=== PATIENT | female | born 1960 | race Caucasian/White ===

== ENCOUNTER 2016-09-08 08:33 | Emergency (ER) | payer MEDICAID ==
[~2016-09-08] VITALS: Ht 162.6 cm; Wt 90.7 kg
--- NOTE | 2016-09-08 08:33 | NUR ---
BIB RA C/O FEELING ANXIOUS S/P INGESTION OF MARIJUANA. NAD NOTED. PT AAO X4, AMBULATORY WITH STEADY GAIT. RR EVEN AND UNLABORED. APPEARS ANXIOUS ON ARRIVAL. AWAITING MD FOR EVAL.
--- NOTE | 2016-09-08 08:45 | NUR ---
EKG AT BEDSIDE
[2016-09-08 09:07] LABS: BASOPHILS % (AUTO) 0.2 % (0.0-2.0); EOSINOPHILS # (AUTO) 0.1 /CMM (0.0-0.7); EOSINOPHILS % (AUTO) 1.3 % (0.0-6.0); HEMATOCRIT 31 % (33-45); HEMOGLOBIN 10.2 g/dL (11.5-14.8); LYMPHOCYTES # (AUTO) 1.2 /CMM (0.8-4.8); LYMPHOCYTES % (AUTO) 10.6 % (20.0-44.0); MEAN CORPUSCULAR HEMOGLOBIN 27 PG (26.0-33.0); MEAN CORPUSCULAR HGB CONC 33 g/dl (31.0-36.0); MEAN CORPUSCULAR VOLUME 80 fL (82-100); MONOCYTES # (AUTO) 0.4 /CMM (0.1-1.30); MONOCYTES % (AUTO) 3.8 % (2.0-12.0); NEUTROPHILS # (AUTO) 9.6 /CMM (1.8-8.9); NEUTROPHILS % (AUTO) 84.1 % (43.0-81.0); PLATELET COUNT (AUTO) 257 /CMM (150-450); RDW COEFFICIENT OF VARIATION 14.8 (11.5-15.0); RED BLOOD CELL COUNT(AUTO) 3.85 MIL/uL (4.0-5.2); WHITE BLOOD COUNT (AUTO) 11.4 K/uL (4.3-11.0)
[2016-09-08 09:16] LABS: CALCIUM, SERUM 8.5 mg/dL (8.5-10.1); CARBON DIOXIDE 26 mmol/L (21-32); CHLORIDE 103 mmol/L (98-107); CREATININE 0.8 mg/dL (0.6-1.3); GFR 74 mL/min (>60); GLUCOSE 200 mg/dL (74-106); POTASSIUM 4.7 mmol/L (3.5-5.1); SODIUM SERUM 137 mmol/L (136-145); UREA NITROGEN, BLOOD 17 mg/dL (7-18)
[2016-09-08 09:23] LABS: ALANINE AMINOTRANSFERASE 18 U/L (12-78); ALBUMIN 3.3 g/dL (3.4-5.0); ALKALINE PHOSPHATASE 132 U/L (46-116); ASPARTATE AMINOTRANSFERASE 11 U/L (15-37); BILIRUBIN,DIRECT 0.1 mg/dL (0.0-0.2); BILIRUBIN,TOTAL 0.3 mg/dL (0.2-1.0); TOTAL PROTEIN, SERUM 7.1 g/dL (6.4-8.2)
[2016-09-08 09:24] LABS: TROPONIN I < 0.017 ng/mL (0.00-0.056)
[2016-09-08 09:33] LABS: ACETAMINOPHEN < 10 ug/ml (10-30)
[2016-09-08 09:34] LABS: ALCOHOL, BLOOD < 3 mg/dL (0-0)
[2016-09-08 11:08] VITALS: BP 151/71
[2016-09-08] MEDS ORDERED: TRAM50TA2 PO (15:17)
[2016-09-08] MEDS ORDERED: IBUP-1482 PO (15:26)
[2016-09-08] MEDS ORDERED: Gabapentin PO (15:26)
[2016-09-08] MEDS ORDERED: METF500T4 PO (15:26)
[2016-09-08] MEDS ORDERED: LISI-603 PO (15:26)
== END 2016-09-08 11:09 | disposition home or self-care (01) ==
LOC: ER 08:36
DX: T40.7X1A Poisoning by cannabis (derivatives), accidental (unintentional), initial encounter (principal); Y92.89 Other specified places as the place of occurrence of the external cause; D64.9 Anemia, unspecified
CPT/HCPCS: 36415; 80048; 80076; 80329; 84484; 85025; 93005; 99285; A4606; G0480 ×2; Z7610; G6039-TC

== ENCOUNTER 2016-09-08 13:37 | Inpatient (IN) | payer MEDICAID ==
[~2016-09-08] VITALS: Ht 152.4 cm; Wt 109.3 kg
--- NOTE | 2016-09-08 13:43 | NUR ---
PT TO ER BED 18. SEEN AND D/C HERE EARLIER. C/O L HIP PAIN. DENIES RECENT TRAUMA. SEEN FOR ANXIETY EARLIER S/P SMOKING MARIJUANA. STATES UNABLE TO WALK DUE TO PAIN. AWAITING MD MOHAN.
--- NOTE | 2016-09-08 13:47 | NUR ---
WILMER LOMAS AT BEDSIDE FOR EVAL.
--- NOTE | 2016-09-08 14:07 | NUR ---
DR RICO AT BEDSIDE FOR EVAL.
--- NOTE | 2016-09-08 14:51 | NUR ---
PAGED LARISSA JONES FOR ADMISSION.
--- NOTE | 2016-09-08 15:00 | NUR ---
SW was informed by an RN stating that there is a homeless pt[facility] requesting some [facility]. [facility]. Pt. states she was just released from ED however, pt. had an unsteady gait and was unable to ambulate. Pt. was escorted back to ED. Pt. informed SW she is in chronic pain and is unable to ambulate. Pt. states she has been homeless for the past 15 days. Pt. had a small suitcase and bag of belongings with her. Pt. was earlier in the ED due to smoking an unknown cigar in a park and feeling high. Pt. has a social media marketing manager Meena at [facility] . RUT contacted Meena per pt's request. Initially pt. was going to be discharged to her SW at [facility], however due to pt's difficulty ambulating due to her chronic pain to her left lower extremity pt. was admitted to [facility] for an MRI of the lumbar spine. RUT to follow up with pt. tomorrow regarding discharge planning.
[2016-09-08] MEDS ORDERED: TRAM50TA2 PO (15:17)
[2016-09-08] MEDS ORDERED: LISI-603 PO (15:26)
[2016-09-08] MEDS ORDERED: METF500T4 PO (15:26)
[2016-09-08] MEDS ORDERED: Gabapentin PO (15:26)
[2016-09-08] MEDS ORDERED: IBUP-1482 PO (15:26)
--- NOTE | 2016-09-08 15:33 | NUR ---
REPORT GIVEN TO TIFFANY. PT TRANSFERE DTO FLOOR. STABLE CONDITION.
[2016-09-08 15:40] VITALS: BP 138/78
--- NOTE | 2016-09-08 15:40 | NUR ---
RN OPENING NOTES RECEIVED PT FROM ER IN STABLE CONDITION. PT. TRANSFERRED TO BE SAFELY. A/O X4. NO SOB AT THIS TIME. PT. ORIENTED IN USE. BED IN LOW LOCKED POTIONS Addendum: 09/08/16 at 1641 by PARESH MORENO RN RN OPENING NOTES RECEIVED PT FROM ER IN STABLE CONDITION. PT. TRANSFERRED TO BE SAFELY. A/O X4. NO IV AT THIS TIME, WILL ATTEMPT TO PUT ONE IN. PT. ORIENTED TO ROOM. BED IN LOW LOCKED POSITION, SIDE RAILS U P X2, CALL LIGHT WITHIN REACH. NOTIFIED OF PT ARRIVAL. WILL CONTINUE TO MONITOR AND CARRY OUT ORDERS.
[2016-09-08] MEDS ORDERED: MAG HYDROX/AL HYDROX/SIMETH 30 ML UDC PO PRN (17:00)
[2016-09-08] MEDS ORDERED: MORPHINE SULFATE INJ 2 MG/ML DISP.SYRIN IV PRN (17:00)
[2016-09-08] MEDS ORDERED: ONDANSETRON HCL/PF 4 MG/2 ML VIAL IVP PRN (17:00)
[2016-09-08] MEDS ORDERED: Z GUARD REMEDY 2 OZ OINT TP PRN (17:00)
[2016-09-08] MEDS ORDERED: ACETAMINOPHEN 325 MG TABLET PO PRN (17:00)
[2016-09-08] MEDS ORDERED: IBUPROFEN 800 MG TABLET PO PRN (17:00)
[2016-09-08] MEDS ORDERED: DEXTROSE 50%-WATER 50 ML DISP.SYRIN IV PRN (17:30)
[2016-09-08] MEDS ORDERED: IBUPROFEN 400 MG TABLET PO PRN ×2 (17:30)
[2016-09-08] MEDS: METFORMIN 500 MG TABLET PO SCH (17:31)
[2016-09-08] MEDS: BLOOD SUGAR DIAGNOSTIC 1 EACH STRIP IN SCH ×2 (17:33→21:45)
[2016-09-08] MEDS: INSULIN REGULAR, HUMAN 100 UNIT/ML 3 ML VIAL SQ PRN (17:40)
--- NOTE | 2016-09-08 18:30 | NUR ---
MS RN CLOSING NOTES PT. IN STABLE CONDITION SLEEPING IN BED. NO SIGNS OF DISTRESS OR PAIN NOTED AT THIS TIME. IV ON LEFT HAND 22G SL. INTACT AND PATENT. NO REDNESS OR INFILTRATION. BED IN LOW LOCKED POSITION, SIDE RAILS UP X2, CALL LIGHT WITHIN REACH. WILL ENDORSE TO NIGHT NURSE FOR AL[place]
--- NOTE | 2016-09-08 19:50 | NUR ---
RN MS - INITIAL NOTES PATIENT CURRENTLY ASLEEP AT THIS TIME. NO S/S OF SOB OR ANY DISCOMFORT NOTED. BED IN LOW POSITION AND LOCKED, SIDERAILS X2 UP. CALL LIGHT IS WITHIN REACH. NO SIGNIFICANT CHANGES NOTED AT THIS TIME. WILL CONTINUE TO MONITOR PATIENT.
[2016-09-08 20:00] VITALS: BP 148/74
--- NOTE | 2016-09-08 20:03 | NUR ---
TEXTED DR. PETERS FOR MRI APPROVAL.
--- NOTE | 2016-09-08 20:07 | NUR ---
MRI APPROVED,IT WILL BE DONE TOMORROW AM 09/09. PLEASE HAVE MRI CHECKLIST READY.
[2016-09-08] MEDS ORDERED: ZOLPIDEM TARTRATE 5 MG TABLET PO PRN (22:00)
[2016-09-08] MEDS ORDERED: MAGNESIUM HYDROXIDE 30 ML UDC PO PRN (22:00)
[2016-09-09] MEDS: BLOOD SUGAR DIAGNOSTIC 1 EACH STRIP IN SCH ×2 (06:10→12:14)
[2016-09-09] MEDS: INSULIN REGULAR, HUMAN 100 UNIT/ML 3 ML VIAL SQ PRN (06:13)
[2016-09-09 06:38] LABS: BASOPHILS % (AUTO) 0.5 % (0.0-2.0); EOSINOPHILS % (AUTO) 0.5 % (0.0-6.0); HEMATOCRIT 27 % (33-45); HEMOGLOBIN 9.1 g/dL (11.5-14.8); LYMPHOCYTES # (AUTO) 1.2 /CMM (0.8-4.8); MEAN CORPUSCULAR HEMOGLOBIN 27 PG (26.0-33.0); MEAN CORPUSCULAR HGB CONC 34 g/dl (31.0-36.0); MEAN CORPUSCULAR VOLUME 79 fL (82-100); MONOCYTES # (AUTO) 0.4 /CMM (0.1-1.30); MONOCYTES % (AUTO) 4.7 % (2.0-12.0); NEUTROPHILS # (AUTO) 7.7 /CMM (1.8-8.9); NEUTROPHILS % (AUTO) 81.3 % (43.0-81.0); PLATELET COUNT (AUTO) 256 /CMM (150-450); RDW COEFFICIENT OF VARIATION 14.6 (11.5-15.0); RED BLOOD CELL COUNT(AUTO) 3.41 MIL/uL (4.0-5.2); WHITE BLOOD COUNT (AUTO) 9.4 K/uL (4.3-11.0)
[2016-09-09 07:04] LABS: CALCIUM, SERUM 8.4 mg/dL (8.5-10.1); CREATININE 0.7 mg/dL (0.6-1.3); MAGNESIUM 1.9 mg/dL (1.8-2.4); PHOSPHORUS 3.5 mg/dL (2.5-4.9)
[2016-09-09] MEDS ORDERED: PANTOPRAZOLE 40 MG TABLET.DR PO SCH (07:30)
--- NOTE | 2016-09-09 07:42 | NUR ---
RN OPEN NOTES RECEIVED REPORT FROM DITTO MACHINE OPERATOR NURSE. PATIENT IS IN BED AWAKE, ALERT AND ORIENTED TO PERSON, TIME AND PLACE. NO SIGN AND SYMPTOMS OF DISTRESS. IV SITE IS POTENT AND INTACT. BED IS IN LOW POSITION, LOCKED, AND 2 SIDE RAILS ARE UP. WILL CONTINUE TO ASSESS AND MONITOR PATIENT THROUGH OUT MY SHIFT.
[2016-09-09 08:00] VITALS: BP 175/81
[2016-09-09 08:23] VITALS: BP 128/85
[2016-09-09] MEDS: METFORMIN 500 MG TABLET PO SCH (08:23)
[2016-09-09] MEDS ORDERED: LISINOPRIL (20MG) 20 MG TABLET PO SCH (09:00)
--- NOTE | 2016-09-09 12:09 | NUR ---
WOUND CARE CONSULT: PATIENT SEEN AND SKIN ASSESSMENT DONE. PATIENT ALERT, ORIENTED, WITH GENERALIZED WEAKNESS, CONTINENT, ABLE TO TURN AND REPOSITION HOWEVER NEEDS PROMPTING, INDEPENDENT WITH BED MOBILITY, DARCI 16. SEE TODAY'S SKIN ASSESSMENT IN PCS ALONG WITH RECOMMENDATIONS. RECOMMEND MOISTURE PROTECTION WITH Z GUARD PRN AND PRESSURE PREVENTION MEASURES ORDERED. ALL DISCUSSED WITH NURSING STAFF. MD IN AGREEMENT WITH PLAN OF CARE. Addendum: 09/09/16 at 1215 by QUE BOWLING WNDNU Amended: Links added.
--- NOTE | 2016-09-09 12:46 | NUR ---
RUT met with pt. to discuss discharge planning. Pt. is A&O x 4. RUT inquired with pt. her discharge plan. Pt. stated she will go to the [facility] located at [address] in [place], however, pt. will be discharged to the custodial metal pickling equipment operator location via taxi to [id number] [facility] (In front of the bus bench). RUT offered pt. homeless resources, however pt. declined stating she has all the resources she needs at this time. Homeless patient waiver form was signed by pt. and placed in chart. Pt. is requesting no other social service needs at this time director social will re-assess if necessary. RUT updated RUCHI Ramirez regarding discharge plan and to have taxi come pick pt. up around 4:30PM.
[2016-09-09] MEDS ORDERED: KETOROLAC TROMETHAMINE INJ 30 MG/ML VIAL IV ONE (14:58)
--- NOTE | 2016-09-09 16:22 | NUR ---
PRODUCTION ENGINE REPAIRER NOTES DISCHARGE ORDER RECEIVED AND CARRIED OUT. PATIENT IS ALERT AND ORIENTED TO NAME, PLACE AND TIME. NO SIGN OR SYMPTOMS OF DISTRESS. PATIENT REFUSED TO SIGN ON HER BELONGING LIST STATING THAT HER SHIRT IS MISSING, HOWEVER, NO SHIRT WAS LISTED DURING ADMISSION. A SHIRT WAS GIVEN TO THE PATIENT FROM [employer]. PATIENT RECEIVED INFORMATION ABOUT DISCHARGE AND DISCHARGE PACKAGE. PATIENT UNDERSTOOD DISCHARGE INSTRUCTIONS. IV SITE REMOVED. ID BAND REMOVED. PATIENT WAS TRANSP[facility]ED [facility] PROVIDED BY [facility]. PATIENT ESCORTED TO [facility] WITH A HARBOR BOAT PILOT AND VIA WHEELCHAIR.
[2016-09-09] MEDS ORDERED: GABAPENTIN 300 MG CAPSULE PO SCH (17:00)
== END 2016-09-09 16:20 | disposition home or self-care (01) | DRG 347 ==
LOC: ER 13:39 → MED 15:07
PROVIDERS: ADMIT Nurse Practitioner Acute Care; ATTEND Nurse Practitioner Acute Care
DX: M48.06 Spinal stenosis, lumbar region (principal); I10 Essential (primary) hypertension; M54.9 Dorsalgia, unspecified; E11.9 Type 2 diabetes mellitus without complications; Z59.0 Homelessness; E66.9 Obesity, unspecified; F17.210 Nicotine dependence, cigarettes, uncomplicated; M43.10 Spondylolisthesis, site unspecified; M46.90 Unspecified inflammatory spondylopathy, site unspecified; M25.78 Osteophyte, vertebrae; G89.29 Other chronic pain; M51.17 Intervertebral disc disorders with radiculopathy, lumbosacral region
CPT/HCPCS: 36415; 72100-TC; 72148-TC; 80048-TC; 80061-TC; 82962-TC; 83735-TC; 84100-TC; 85025-TC; 87081-TC; A4606; J1815; J2270; Z7610